=== PATIENT | female | born 1980 | race Caucasian/White ===

== ENCOUNTER 2020-03-22 17:49 | Emergency (ER) | payer OTHER ==
[~2020-03-22] VITALS: Ht 152.4 cm; Wt 57.2 kg
== END 2020-03-22 22:21 | disposition home or self-care (01) ==
LOC: ER 17:49
DX: J06.9 Acute upper respiratory infection, unspecified (principal)

== ENCOUNTER 2022-08-07 12:15 | Emergency (ER) | payer OTHER ==
[~2022-08-07] VITALS: Ht 152.4 cm; Wt 59.0 kg
[2022-08-07] MEDS ORDERED: MEDROLPACK PO (17:58)
== END 2022-08-07 18:18 | disposition home or self-care (01) ==
LOC: ER 12:15
DX: J06.9 Acute upper respiratory infection, unspecified (principal); Z20.822 Contact with and (suspected) exposure to COVID-19